=== PATIENT | female | born 1935 | race Caucasian/White ===

== ENCOUNTER → 2018-03-14 09:31 | Outpatient (CLI) | payer MEDICARE, SELFPAY ==
--- NOTE | 2018-03-14 09:45 | XR_ITS ---
EXAM: XR lumbar spine 6V w bending HISTORY: ITS.REASON: ACUTE MIDLINE BACK PAIN WITHOUT SCIATICA ORDERING PHYSICIAN: Yuniel Pulliam MD PATIENT AGE: 82 years COMPARISON: None FINDINGS: Mild dextroscoliosis of the thoracic lumbar junction. No acute fracture or dislocation. There is 6 mm anterolisthesis of L4 on L5 with degenerative disc disease at L4-L5 and L5-S1. There is 5 mm anterolisthesis of L5 on S1. Facet arthritic changes are present at L4-L5 and L5-S1. Flexion and extension views show no abnormal translation. Incidental note is made of wedge compression changes of T10 as seen on the flexion images. This is worse since the previous chest CT of 01/31/2013.. There is approximately 60% anterior wedge compression changes of T10. IMPRESSION: 1. 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 2. 60% wedge compression changes anteriorly of T10 increased since previous CT scan of 01/31/1930. At that time the compression changes approximately 30%
== END ==
PROVIDERS: PCP Family Medicine; Referring Provider Family Medicine; Visit Provider Family Medicine
DX: M54.5 Low back pain (principal)
CPT/HCPCS: 72114

== ENCOUNTER → 2018-03-30 10:33 | Outpatient (POV) | payer MEDICARE, SELFPAY ==
[2018-03-30 10:48] VITALS: BP 120/85; PULSE 85; O2SAT 98
--- NOTE | 2018-03-30 11:01 | HMH.PMCON ---
Assessment and Plan (1) Compression fracture Current visit: Yes Status: Chronic Category: Medical - Assessment and plan all Dx Assessment and Plan for all problems:: We will provide the patient with a brace today. We will also call her in 1 month worth of meloxicam 7.5 mg 1 p.o. daily. I will follow-up with the patient in 1 month and we will determine how she is feeling. If the patient is continually feeling better I believe a conservative approach will be better for her. If not we will potentially move forward with an MRI to determine age of the compression fracture. This note was dictated using voice recognition software and may contain errors or omissions HPI - Data of Consult Consult date: 03/30/18 Requesting Physician: Glory Adan APRN Primary Care Provider: Yuniel Pulliam MD Family Provider: Yuniel Pulliam MD - Consult Narrative Reason for consult: Compression fracture History of present illness: Ms. Loyola is a 82 year old female who presents today to discuss her trip T10. Patient states today is the best day she has had pain hazel in a long time. Patient states that most of her pain has been in her back however she rates it a 5 out of 10 today. She states that she feels like she is getting better. Patient does not have any MRI imaging. Patient and I discussed options of how to treat her compression fracture. We discussed kyphoplasty along with potentially epidural steroid injections along with bracing and conservative measures. Patient would like to take a more conservative approach at this time. Patient stated states that this pain began back in May. If this is the case she may be outside the window for kyphoplasty. We will give her a back brace today. We will also give her 1 month worth of anti-inflammatories. CC: Glory Adan APRN [facility] History I have reviewed the patient's past medical history: Yes - *Social History Alcohol Intake: never Occupational Status: retired Housing: house - Psychiatric History Expresses thoughts of harming self/others: None Suicide Plan Description: No Plan *Family Hx:: Unable to obtain Review of Systems - Review of Systems ROS General: no recent weight change, no fever, no sleep disturbances Respiratory: no cough, no shortness of air, no recurring pulmonary infections Cardiovascular/Peripheral Vascular: No chest pain, No palpitations, no edema, no shortness of breath. Gastrointestinal: no new onset incontinence, normal bowel movements reported Genitourinary: no new onset incontinence Musculoskeletal: Back pain Psychiatric: normal mood/ affect Neurological: [denies weakness in extremities], [denies balance issues] Meds Allergies Allergy/AdvReac Type Severity Reaction Status Date / Time No Known Allergies Allergy Unverified 09/02/17 14:54 Objective Vital signs: Pulse BP Pulse Ox 85 120/85 98 03/30/18 10:48 03/30/18 10:48 03/30/18 10:48 Narrative: Physical Exam General: Alert and oriented x3, no acute distress, pleasant and cooperative, [on room air] Lungs: Resps E/U, Symmetrical chest expansion, Eyes: PERRL Musculoskeletal: Flexion and extension of lumbar spine somewhat guarded secondary to pain, deep tendon reflexes normal, strength in upper and lower extremities [5/5], slightly antalgic gait noted Neurological: 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
--- NOTE | 2018-03-30 11:04 | P.CONS_ITS ---
Assessment and Plan (1) Compression fracture Current visit: Yes Status: Chronic Category: Medical - Assessment and plan all Dx Assessment and Plan for all problems:: We will provide the patient with a brace today. We will also call her in 1 month worth of meloxicam 7.5 mg 1 p.o. daily. I will follow-up with the patient in 1 month and we will determine how she is feeling. If the patient is continually feeling better I believe a conservative approach will be better for her. If not we will potentially move forward with an MRI to determine age of the compression fracture. This note was dictated using voice recognition software and may contain errors or omissions HPI - Data of Consult Consult date: 03/30/18 Requesting Physician: Glory Adan APRN Primary Care Provider: Yuniel Pulliam MD Family Provider: Yuniel Pulliam MD - Consult Narrative Reason for consult: Compression fracture History of present illness: Ms. Loyola is a 82 year old female who presents today to discuss her trip T10. Patient states today is the best day she has had pain hazel in a long time. Patient states that most of her pain has been in her back however she rates it a 5 out of 10 today. She states that she feels like she is getting better. Patient does not have any MRI imaging. Patient and I discussed options of how to treat her compression fracture. We discussed kyphoplasty along with potentially epidural steroid injections along with bracing and conservative measures. Patient would like to take a more conservative approach at this time. Patient stated states that this pain began back in May. If this is the case she may be outside the window for kyphoplasty. We will give her a back brace today. We will also give her 1 month worth of anti-inflammatories. CC: Glory Adan APRN [facility] History I have reviewed the patient's past medical history: Yes - *Social History Alcohol Intake: never Occupational Status: retired Housing: house - Psychiatric History Expresses thoughts of harming self/others: None Suicide Plan Description: No Plan *Family Hx:: Unable to obtain Review of Systems - Review of Systems ROS General: no recent weight change, no fever, no sleep disturbances Respiratory: no cough, no shortness of air, no recurring pulmonary infections Cardiovascular/Peripheral Vascular: No chest pain, No palpitations, no edema, no shortness of breath. Gastrointestinal: no new onset incontinence, normal bowel movements reported Genitourinary: no new onset incontinence Musculoskeletal: Back pain Psychiatric: normal mood/ affect Neurological: [denies weakness in extremities], [denies balance issues] Meds Allergies Allergy/AdvReac Type Severity Reaction Status Date / Time No Known Allergies Allergy Unverified 09/02/17 14:54 Objective Vital signs: Pulse BP Pulse Ox 85 120/85 98 03/30/18 10:48 03/30/18 10:48 03/30/18 10:48 Narrative: Physical Exam General: Alert and oriented x3, no acute distress, pleasant and cooperative, [ on room air] Lungs: Resps E/U, Symmetrical chest expansion, Eyes: PERRL Musculoskeletal: Flexion and extension of lumbar spine somewhat guarded secondary to pain, deep tendon reflexes normal, strength in upper and lower extremities [5/5], slightly antalgic gait noted 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
== END ==
PROVIDERS: PCP Family Medicine; Visit Provider Clinical Nurse Specialist Family Health
DX: M48.50XG Collapsed vertebra, not elsewhere classified, site unspecified, subsequent encounter for fracture with delayed healing (principal)
CPT/HCPCS: 99202

== ENCOUNTER → 2018-06-11 11:18 | Outpatient (POV) | payer MEDICARE, SELFPAY | PROVIDERS: Family Provider Family Medicine; PCP Family Medicine; Visit Provider Dentist | DX: Z00.00 Encounter for general adult medical examination without abnormal findings (principal) ==

== ENCOUNTER → 2018-12-08 14:41 | Outpatient (CLI) | payer MEDICARE, SELFPAY ==
--- NOTE | 2018-12-08 14:50 | XR_ITS ---
EXAM: XR lumbar spine min V HISTORY: Low back pain ITS.REASON: LUMBAGO W/SCIATICA ORDERING PHYSICIAN: Yuniel Pulliam MD PATIENT AGE: 83 years COMPARISON: 03/14/2018 FINDINGS: There is mild thoracolumbar scoliosis convex right. Facet arthritic changes are present at L4-L5 and L5-S1. There is mild anterolisthesis with degenerative disc disease at L4 on L5 and L5 on S1. There is severe wedging involving the T10 vertebral body with loss of height of greater than 50%. The T10 area is not covered on the previous lumbar spine. There was mild wedging of T10 on the CT scan of 01/31/2013. IMPRESSION: Degenerative changes of the lumbar spine which are stable. Moderate to severe wedging of T10 which has increased since 01/31/2013
--- NOTE | 2018-12-08 14:50 | XR_ITS ---
XR hip RT 2-3V w/pelvis HISTORY: Right hip pain ITS.REASON: CHRONIC PAIN,RT LEG PAIN ORDERING PHYSICIAN: Yuniel Pulliam MD PATIENT AGE: 83 years COMPARISON: None FINDINGS: No acute fracture or dislocation. No lytic or blastic change. There is generalized osteopenia with mild osteoarthritic changes of the right hip. Faint rounded calcific densities are present in the pelvis and may be due to phleboliths or even hyperdense material within diverticula. IMPRESSION: No acute finding
--- NOTE | 2018-12-08 14:50 | XR_ITS ---
XR knee RT 3V HISTORY: Chronic right knee pain ITS.REASON: CHRONIC PAIN,RT LEG PAIN ORDERING PHYSICIAN: Yuniel Pulliam MD PATIENT AGE: 83 years COMPARISON: None FINDINGS: No fracture or dislocation. No lytic or blastic change. Normal mineralization. No significant arthritic changes evident. No other significant findings IMPRESSION: Negative right Knee
== END ==
PROVIDERS: PCP Family Medicine; Visit Provider Family Medicine
DX: M54.41 Lumbago with sciatica, right side (principal); M79.604 Pain in right leg; G89.29 Other chronic pain
CPT/HCPCS: 72110; 73502; 73562

== ENCOUNTER → 2019-01-15 15:43 | Outpatient (CLI) | payer MEDICARE, SELFPAY ==
--- NOTE | 2019-01-15 15:46 | MR_ITS ---
MR lumbar spine wo con, MR 3-d myelogram/MRCP HISTORY: L low back pain ITS.REASON: LOW BACK PAIN WITH RT SIDED SCIATICA ORDERING PHYSICIAN: Yuniel Pulliam MD PATIENT AGE: 83 years Comparison: 12/08/2018 TECHNIQUE: Standard multiplanar multiecho sequences are performed without contrast. 3-D MIP and myelographic images are also rendered and reviewed The patient was thoroughly questioned before the exam denying any surgery especially any type of intracranial surgery. When the exam was finished the patient claimed she had aneurysm surgery. The patient denied any headache or other neurologic symptoms. A head CT did not show any acute findings . The patient was instructed to come to the ER if she noticed any new symptoms. Dr. Pulliam was notified of the situation. FINDINGS: Severe wedge compression changes involve the T10 vertebral body with loss of height anteriorly of greater than 50% and mild kyphosis at T10-T11. There is mild retrolisthesis of T10 of 3 mm. Degenerative disc disease is present at T9-T10 and T10-T11. The compression changes at T10 do not appear acute. T11-T12: Degenerative disc disease. T12-L1: Minimal bulging disc with degenerative disc disease. L1-L2: Mild concentric bulging disc with mild left lateral recess and foraminal narrowing. L2-L3: Minimal bulging disc. L3-L4: Minimal bulging disc slightly eccentric toward the right with mild right lateral recess and foraminal narrowing. L4-L5: Grade 1 spondylolisthesis with disc bulge and moderate facet and ligamentum flavum hypertrophy. There is severe bilateral lateral recess narrowing and severe right-sided foraminal narrowing. There is moderate canal stenosis at this level. Type I endplate changes. L5-S1: Concentric bulging disc. There is 4 mm anterolisthesis of L5 on S1. There is mild thoracic lumbar scoliosis convex right. IMPRESSION: 1. Multilevel thoracic and lumbar spondylosis with degenerative disc disease bulging disc facet and ligamentum hypertrophy foraminal and lateral recess narrowing. Please see above for detailed description at each level. There is moderate to severe canal stenosis at L4-L5 and anterolisthesis of L4 on L5 and L5 on S1. Please see above for detailed description at each level. 2. Chronic wedge compression changes at T10
--- NOTE | 2019-01-15 17:15 | CT_ITS ---
CT head/brain wo con HISTORY: Evaluate aneurysm clip ITS.REASON: LOOK AT ANEURYSM CLIP ORDERING PHYSICIAN: Yuniel Pulliam MD PATIENT AGE: 83 years COMPARISON: 05/20/2017 TECHNIQUE: Axial images obtained without contrast. Brain and bone windows reviewed. All CT scans at the facility use one or more dose reduction, viz: automated exposure control, ma/kV adjustment per patient size (including targeted exams where dose is matched to indication, i.e. head), or iterative reconstruction technique. FINDINGS: There has been a prior right-sided craniectomy in the frontal and temporal region. There is generalized atrophy with periventricular ischemic gliotic change. There is an aneurysm clip in the right suprasellar region. There is no evidence of intracranial hemorrhage midline shift or mass effect. No significant change from 05/20/2017. IMPRESSION: No acute intracranial findings. Status post aneurysm repair overall not significantly changed
== END ==
PROVIDERS: PCP Family Medicine; Visit Provider Family Medicine
DX: M54.41 Lumbago with sciatica, right side (principal)
CPT/HCPCS: 70450; 72148; 76376

== ENCOUNTER → 2019-02-02 09:46 | Outpatient (POV) | payer MEDICARE, SELFPAY ==
[2019-02-02 10:02] VITALS: BP 146/86; PULSE 92; RESP 18; O2SAT 98; BMI 25.4
--- NOTE | 2019-02-02 10:14 | HMH.PAINSOAP ---
[facility] Pain Management SOAP Note Subjective:: Patient is a pleasant 83-year-old white female who presents today for follow-up after MRI and starting meloxicam. Patient MRI shows significant degenerative changes and a spondylolisthesis at the L4-L5 level. Patient is currently on Plavix but has permission from her primary care physician hold it for 5 days. Patient and I discussed injective therapy she would like to start with an epidural steroid injection I do believe that that would be beneficial. ROS General: no recent weight change, no fever, no sleep disturbances Respiratory: no cough, no shortness of air, no recurring pulmonary infections Cardiovascular/Peripheral Vascular: No chest pain, No palpitations, no edema, no shortness of breath. Gastrointestinal: no incontinence, normal bowel movements reported Genitourinary: no incontinence Musculoskeletal: Back pain, leg pain Psychiatric: normal mood/ affect Neurological: [denies weakness in extremities], [denies balance issues] Objective:: Physical Exam General: Alert and oriented x3, no acute distress, pleasant and cooperative, [on room air] Lungs: Resps E/U, Symmetrical chest expansion, Eyes: PERRL Musculoskeletal: Flexion and extension of lumbar spine somewhat guarded secondary to pain, deep tendon reflexes normal, strength in upper and lower extremities [5/5], [abnormal gait noted] Neurological: speech clear, calciminer equal, no gross sensory deficits Assessment:: Degenerative disc disease lumbar spine with lumbar radiculopathy along with compression fractures Plan:: We will do an L4-L5 lumbar epidural steroid injection. I will follow-up with the patient after injection reassess her symptoms at that time. Patient's been instructed to call the office if she has any issues prior to her next appointment. Dr. Luevano has reviewed this note and agrees with this plan of care. This note was dictated using voice recognition software and may contain errors or omissions
== END ==
PROVIDERS: PCP Family Medicine; Visit Provider Clinical Nurse Specialist Family Health
DX: M51.16 Intervertebral disc disorders with radiculopathy, lumbar region (principal); M84.48XD Pathological fracture, other site, subsequent encounter for fracture with routine healing
CPT/HCPCS: 99212

== ENCOUNTER → 2019-03-16 10:45 | Outpatient (POV) | payer MEDICARE, SELFPAY ==
[2019-03-16 11:23] VITALS: BP 144/82; PULSE 94; RESP 18; O2SAT 98; BMI 25.4
--- NOTE | 2019-03-16 12:57 | HMH.PAINSOAP ---
[facility] Pain Management SOAP Note Subjective:: Patient is a pleasant 83-year-old white female who presents today for follow-up after lumbar epidural steroid injection of L4-L5. Patient says that she had 90% relief for about 2 weeks and pain has returned. She rates her pain a 5 out of 10 today. She says that the pain is different than what she had prior to the epidural steroid injection. She complains of pain to her lower back into bilateral buttocks. She does say that it is worse with ambulation and improves with walking. She is continuing a home stretching program along with anti-inflammatories. Review of Systems General: No recent weight changes, no fever, no sleep disturbances Respiratory: No cough, no shortness of air, no recurring pulmonary infections Cardiovascular/peripheral vascular: No chest pain, no palpitations, no edema, no shortness of breath Gastrointestinal: No new onset incontinence, normal bowel movements reported Genitourinary: No new onset incontinence Musculoskeletal: Back pain Psychiatric: Normal mood/affect Neurological: [Denies weakness in extremities], [denies balance issues] Objective:: Physical exam General: Alert and oriented x3, no acute distress, pleasant and cooperative, [on room air] Lungs: Respirations even and unlabored, symmetrical chest expansion Eyes: PERRL Musculoskeletal: Flexion and extension of lumbar spine somewhat guarded secondary to pain, deep tendon reflexes normal, strength in upper and lower extremities [5/5], slightly antalgic gait noted, positive human's test, positive compression test, positive Snow's test Neurological: 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 Patient will continue her home stretching program, along with anti-inflammatories. We will see her back after her procedure and reassess her symptoms at that time. She is been instructed to call the office if she has any concerns prior to her next appointment. Dr. Luevano has reviewed this note and agrees with this plan of care. This note was dictated using voice recognition software and make contain errors or omissions.
--- NOTE | 2019-03-16 13:01 | P.CONS_ITS ---
[facility] Pain Management SOAP Note Subjective:: Patient is a pleasant 83-year-old white female who presents today for follow-up after lumbar epidural steroid injection of L4-L5. Patient says that she had 90% relief for about 2 weeks and pain has returned. She rates her pain a 5 out of 10 today. She says that the pain is different than what she had prior to the epidural steroid injection. She complains of pain to her lower back into bilateral buttocks. She does say that it is worse with ambulation and improves with walking. She is continuing a home stretching program along with anti- inflammatories. Review of Systems General: No recent weight changes, no fever, no sleep disturbances Respiratory: No cough, no shortness of air, no recurring pulmonary infections Cardiovascular/peripheral vascular: No chest pain, no palpitations, no edema, no shortness of breath Gastrointestinal: No new onset incontinence, normal bowel movements reported Genitourinary: No new onset incontinence Musculoskeletal: Back pain Psychiatric: Normal mood/affect Neurological: [Denies weakness in extremities], [denies balance issues] Objective:: Physical exam General: Alert and oriented x3, no acute distress, pleasant and cooperative, [on room air] Lungs: Respirations even and unlabored, symmetrical chest expansion Eyes: PERRL Musculoskeletal: Flexion and extension of lumbar spine somewhat guarded secondary to pain, deep tendon reflexes normal, strength in upper and lower extremities [5/5], slightly antalgic gait noted, positive human's test, positive compression test, positive Snow's test Neurological: 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 Patient will continue her home stretching program, along with anti-inflammatories. We will see her back after her procedure and reassess her symptoms at that time. She is been instructed to call the office if she has any concerns prior to her next appointment. Dr. Luevano has reviewed this note and agrees with this plan of care. This note was dictated using voice recognition software and make contain errors or omissions.
== END ==
PROVIDERS: PCP Family Medicine; Visit Provider Clinical Nurse Specialist Family Health
DX: M51.16 Intervertebral disc disorders with radiculopathy, lumbar region (principal); M99.53 Intervertebral disc stenosis of neural canal of lumbar region
CPT/HCPCS: 99212

== ENCOUNTER → 2019-04-13 10:14 | Outpatient (POV) | payer MEDICARE, SELFPAY ==
--- NOTE | 2019-04-13 10:37 | P.CONS_ITS ---
[facility] Pain Management SOAP Note Subjective:: Patient is a pleasant 83-year-old white female who presents today for follow-up after bilateral SI joint injections. Overall doing well she had one lumbar epidural steroid injection 1 SI joint injection. She rates her pain a 6 out of 10 which she says is pretty much her baseline overall she feels like she is doing well would like to follow-up before Thanks. ROS General: no recent weight change, no fever, no sleep disturbances Respiratory: no cough, no shortness of air, no recurring pulmonary infections Cardiovascular/Peripheral Vascular: No chest pain, No palpitations, no edema, no shortness of breath. Gastrointestinal: no incontinence, normal bowel movements reported Genitourinary: no incontinence Musculoskeletal: Back pain, SI joint pain at times Psychiatric: normal mood/ affect Neurological: [denies weakness in extremities], [denies balance issues] Objective:: Physical Exam General: Alert and oriented x3, no acute distress, pleasant and cooperative, [on room air] Lungs: Resps E/U, Symmetrical chest expansion, Eyes: PERRL Musculoskeletal: Flexion and extension of lumbar spine somewhat guarded secondary to pain, deep tendon reflexes normal, strength in upper and lower extremities [5/5], [abnormal gait noted] Neurological: speech clear, fine grader equal, no gross sensory deficits Assessment:: Degenerative disc disease lumbar spine with lumbar radiculopathy along with bilateral sacroiliitis Plan:: We will follow-up with the patient in the beginning of July we will reassess her symptoms at that time we will then decide if she needs any further injective therapy prior to the holidays. Dr. Luevano has reviewed this note and agrees with this plan of care. This note was dictated using voice recognition software and may contain errors or omissions
[2019-04-13 11:04] VITALS: BP 121/81; PULSE 75; RESP 18; O2SAT 98; BMI 23.3
== END ==
PROVIDERS: PCP Family Medicine; Visit Provider Clinical Nurse Specialist Family Health
DX: M51.16 Intervertebral disc disorders with radiculopathy, lumbar region (principal); M46.1 Sacroiliitis, not elsewhere classified
CPT/HCPCS: 99212